=== PATIENT | male | born 1970 ===

== ENCOUNTER 2017-10-12 08:36 | Day surgery (SDC) | payer OTHER ==
--- NOTE | 2017-10-12 10:27 | CP.SDSHP ---
Same Day Surgery H & P - History Proposed Procedure: US guided FNA of left thyroid nodule Pre-Op Diagnosis: left thyroid nodule - Allergies Allergies: Allergies No Known Allergies Allergy (Verified 10/06/17 09:36) - Physical Exam Mental Status: Alert & Oriented x3 Neuro: WNL Heart: WNL - Impression Impression: Pt with a 1.5 cm complex left thyroid nodule. Plan US guided FNA of left thyroid nodule. Pt. Evaluated Today:Candidate for Anesthesia & Procedure: No - Date & Time Date: 10/12/17 Time: 10:00 Short Stay Discharge - Short Stay Discharge Admitting Diagnosis/Reason for Visit: DX :E04.1 - THYROID NODULE Disposition: HOME/ ROUTINE
--- NOTE | 2017-10-12 10:28 | PCM.SURG1 ---
Surgeon's Initial Post Op Note - Surgeon's Notes Surgeon: Bonifacio Oconnor MD [employer]borne And [employer] Delivery Specialist: NONE Type of Anesthesia: Local Pre-Operative Diagnosis: left thyroid nodule Operative Findings: 1.5 cm left thyroid nodule Post-Operative Diagnosis: left thyroid nodule Operation Performed: US guided FNA of left thyroid nodule Specimen/Specimens Removed: 25 g FNA x 5 passes Estimated Blood Loss: EBL {In ML}: 0 Blood Products Given: N/A Drains Used: No Drains Post-Op Condition: Good Date of Surgery/Procedure: 10/12/17 Time of Surgery/Procedure: 10:25
--- NOTE | 2017-10-12 11:33 | US ---
PROCEDURE: Date of Procedure: 10/12/2017 PROCEDURE: 1. Ultrasound guided FNA of left thyroid nodule, CPT 67623 2. Ultrasound guidance for FNA, 46988 Medications: 1% Lidocaine HISTORY: Enlarged left thyroid nodule. TECHNIQUE: Following informed consent and procedure time-out, a limited ultrasound patient's neck confirmed the presence of a 1.5 cm complex left thyroid nodule which is predominantly solid. After the patient's neck was prepped and draped in the usual sterile fashion, the skin was anesthetized with 1% lidocaine. Ultrasound-guided fine needle aspiration was then performed of the dominant left thyroid nodule. A total of 5 passes were made into the nodule with 25 gauge needle under ultrasound guidance. The FNA specimen was sent for routine pathology. Post biopsy ultrasound showed no hematoma. IMPRESSION: Ultrasound-guided FNA of the dominant left thyroid nodule.
== END 2017-10-12 11:30 | disposition home or self-care (01) ==
LOC: C.SPRAD 08:36
PROVIDERS: ATTEND Radiology Vascular & Interventional Radiology
DX: E04.1 Nontoxic single thyroid nodule (principal)